=== PATIENT | male | born 1950 | race Caucasian/White ===

== ENCOUNTER → 2023-07-10 09:45 | Outpatient (REF) | payer OTHER, SELFPAY | LOC: RCS 09:45 | PROVIDERS: ATTENDING PHYSICIAN Internal Medicine Cardiovascular Disease; FAMILY PHYSICIAN Nurse Practitioner Primary Care | DX: R06.02 Shortness of breath (principal); Z76.89 Persons encountering health services in other specified circumstances; I10 Essential (primary) hypertension; I77.810 Thoracic aortic ectasia; R00.1 Bradycardia, unspecified | CPT/HCPCS: 93017 ==

== ENCOUNTER → 2023-07-18 14:02 | Outpatient (REF) | payer OTHER, SELFPAY | LOC: RCS 14:02 | PROVIDERS: ATTENDING PHYSICIAN Internal Medicine Cardiovascular Disease; FAMILY PHYSICIAN Nurse Practitioner Primary Care | DX: Z76.89 Persons encountering health services in other specified circumstances (principal); R06.02 Shortness of breath; I10 Essential (primary) hypertension; I77.810 Thoracic aortic ectasia; R00.1 Bradycardia, unspecified | CPT/HCPCS: 93306 ==

== ENCOUNTER → 2023-10-26 12:51 | Outpatient (REF) | payer OTHER, SELFPAY | LOC: RSP 12:51 | PROVIDERS: ATTENDING PHYSICIAN Internal Medicine Cardiovascular Disease | DX: R06.02 Shortness of breath (principal) | CPT/HCPCS: 94727; 94729; 88738; 94060 ==